=== PATIENT | female | born 1970 | race Caucasian/White ===

== ENCOUNTER → 2018-12-15 | Outpatient (CLI) | payer OTHER ==
[~2018-12-15] VITALS: Ht 152.4 cm; Wt 67.1 kg
[~2018-12-15] MED LIST: CYMBALTA60 MG PO; LAMOTRIGINE300 MG PO; LEXAPRO 10 MG T10 M2 PO; LISINOPRIL10 MG PO; LISINOPRIL20 MG; NORCO 5-325 TA1 EACH PO; PAXIL10 MG; PAXIL40 MG; TRILEPTAL300 MG PO; ZESTRIL10 MG
[2018-12-15 08:35] VITALS: BP 118/77
[2018-12-15 08:40] LABS: HEMATOCRIT 39.5 % (37.0-47.0); HEMOGLOBIN 13.2 gm/dL (12.0-15.0); MCH 30.4 pg (26.0-34.0); MCHC 33.5 g/dL (28.0-37.0); MCV 90.7 fL (80.0-100.0); MPV 9.5 fl. (7.2-11.1); RBC 4.35 mil/uL (4.20-5.00); RDW-CV 13.5 % (10.5-14.5); WBC 5.5 thou/uL (4.0-11.0)
[2018-12-15 08:49] LABS: APTT 28.9 Seconds (25.0-31.3)
[2018-12-15 08:53] LABS: ALKALINE PHOSPHATASE 91 U/L (46-116); ANION GAP 6 mmol/L (7-16); BUN 13 mg/dL (7-18); CALCIUM 9.1 mg/dL (8.5-10.1); CHLORIDE 103 mmol/L (98-107); CHOLESTEROL 226 mg/dL (<200); CO2 29 mmol/L (21-32); CREATININE 0.8 mg/dL (0.6-1.3); GLUCOSE 93 mg/dL (70-99); HDL CHOLESTEROL 78 mg/dL (>40); LDL CHOLESTEROL 133 mg/dL (<100); POTASSIUM 3.9 mmol/L (3.5-5.1); SGOT 18 U/L (15-37); SGPT 23 U/L (30-65); SODIUM 138 mmol/L (136-145); TC:HDL 2.9 Ratio (Not establshd); TOTAL BILIRUBIN 0.5 mg/dL (<0.1-1.0); TOTAL PROTEIN 7.6 g/dL (6.4-8.2); TRIGLYCERIDE 77 mg/dL (<150); VLDL 15 mg/dL (<40)
[2018-12-15 08:56] LABS: SERUM ASSESSMENT Clear
[2018-12-15 11:39] VITALS: BP 115/72
[2018-12-15 13:42] VITALS: BP 115/87
--- NOTE | 2018-12-15 17:44 | EKG ---
[place] [address] ELECTROCARDIOGRAM REPORT Name: IVELISSE AGUAYO Room: [facility]#: [id number] Admission: 12/15/18 Attend Phys: Cameron Beard MD, Discharge: Date of : 68 Report #: [id number] THIS REPORT FOR: //name// [facility] Test Date: 2018-12-15 Test Time: 08:14:30 Pat Name: IVELISSE AGUAYO Department: Room: Gender: F Retail Sales Representative: DAVIN : 1970 Requested By: Cameron Beard Order Number: [id number] Reading MD: Ervin Stanton Measurements Intervals [place] Rate: 69 P: 4 AK: 138 QRS: -5 QRSD: 91 T: 115 QT: 438 QTc: 470 Interpretive Statements Sinus rhythm Left ventricular hypertrophy Nonspecific T abnrm, anterolateral leads Compared to ECG 02/14/2016 08:51:23 Left ventricular hypertrophy now present Atrial premature complex(es) no longer present Electronically Signed On 12-15-2018 17:44:29 CDT by Ervin Stanton [email or web address] <ELECTRONICALLY SIGNED> By: Ervin Stanton MD, [facility] 12/15/18 1744 0814 Ervin Stanton MD, [facility] /EPI
--- NOTE | 2018-12-16 15:32 | CARD ---
[address] [address] CARDIAC CATH REPORT Name: IVELISSE AGUAYO [id number] Admission: 12/15/18 Attend Phys: Cameron Beard MD, Discharge: Date of : 68 Report #: [id number] THIS REPORT FOR: //name// APPROVED REPORT Study performed: 12/15/2018 10:29:48 Patient Details Patient Status: Out-Patient Room #: The patient is a 48 year-old female Event Personnel Cameron Beard Manager Floral, Berna Shane RN Senior Professional Services Consultant, Parvin Brumfield Monitor, Darvin Hartley Scrub Procedures Performed Art Access - R femoral artery* , Selective Right and Left Coronary AngiographyLeft Heart Cath w/or w/o Coronaries [id number] C , Complete Heart Catheterization; A7 aortography Indication Valvular heart disease Procedure Narrative The patient was brought electively to the Cardiac Catheterization Laboratory and was prepped and draped in a sterile manner. The right femoral was infiltrated with 2% Lidocaine subcutaneous anesthesia. A Paris 6 FR sheath was inserted into the right femoral artery. Coronary angiography was performed using coronary diagnostic catheters. The right coronary system was accessed and visualized with a 6fr JR 4 catheter. The left coronary system was accessed and visualized with a 6fr JL 4 catheter. The left ventricle was accessed and visualized with a AL1 6fr catheter. Left ventricular/Aortic Valve gradient assessed via catheter pullback. An aortogram of the ascending aorta was performed. Pre-demployment femoral angiogram was performed . Closure device was deployed with a 6 Fr MynxGrip 6/7F. The patient tolerated the procedure well and there were no complications associated with the procedure. Intraoperative Conscious Sedation Sedation start time: 10:54 Case end Time: 11:15 Fentanyl 50 mcg Versed 3 mg Fluoro Time: 4.4 [place] [address] CARDIAC CATH REPORT Name: OLIVIERIVELISSE PEPE Room: [facility]#: [id number] Admission: 12/15/18 Attend Phys: Cameron Beard MD, Discharge: Date of : 68 Report #: [id number] Dose: DAP 15793 cGycm2 519.11 mGy Contrast Type and Amount: Visipaque 200 ml Coronary Angiography The patient's coronary anatomy is right dominant. Diagnostic Cath Left Main 0% narrowing LAD 0% narrowing Circumflex Nondominant vessel with 0% narrowing Right Coronary Dominant vessel with 0% narrowing; there was mild catheter induced spasm at the tip of the right coronary catheter Left Ventriculography Left Ventriculography was not performed. Descending aortography demonstrated moderately severe tubular dilatation of the ascending aorta; there was marked calcification with reduced cusp excursion of the aortic valve with mild aortic insufficiency noted Hemodynamics The aortic pressure is 120/61 mmHg with a mean of mmHg. The left ventricular pressure is 181/1 mmHg with a mean of mmHg. The left ventricular end diastolic pressure is 15 mmHg. Pullback from the left ventricle to the aorta revealed a 60 mm gradient across the aortic valve. 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
== END | disposition home or self-care (01) ==
LOC: M.CL 07:45
PROVIDERS: Internal Medicine
DX: I35.2 Nonrheumatic aortic (valve) stenosis with insufficiency (principal); I77.810 Thoracic aortic ectasia; I10 Essential (primary) hypertension; J45.909 Unspecified asthma, uncomplicated; F17.210 Nicotine dependence, cigarettes, uncomplicated; Z88.0 Allergy status to penicillin; Z79.899 Other long term (current) drug therapy; Z79.01 Long term (current) use of anticoagulants; Z98.890 Other specified postprocedural states